=== PATIENT | female | born 1950 | race Caucasian/White ===

== ENCOUNTER → 2017-03-21 | Outpatient (CLI) | payer MEDICARE ==
--- NOTE | 2017-03-22 12:57 | MM ---
Reason for exam: screening (asymptomatic). Last mammogram was performed 1 year ago. History: Patient is postmenopausal. Physical Findings: A clinical breast exam by your physician is recommended on an annual basis and results should be correlated with mammographic findings. MG 3D Screening Mammo W/Cad Bilateral CC and MLO view(s) were taken. Prior study comparison: March 09, 2016, bilateral MG 3d screening mammo w/cad. February 21, 2015, bilateral MG screening mammo w CAD. There are scattered fibroglandular densities. No significant changes when compared with prior studies. ASSESSMENT: Negative, BI-RAD 1 RECOMMENDATION: Routine screening mammogram of both breasts in 1 year.
== END | disposition home or self-care (01) ==
LOC: RADMAMWWP 16:27
PROVIDERS: ATTEND Family Medicine
DX: Z12.31 Encounter for screening mammogram for malignant neoplasm of breast (principal)
CPT/HCPCS: 77063; G0202

== ENCOUNTER 2017-12-06 07:28 | Day surgery (SDC) | payer MEDICARE ==
[2017-12-03 15:59] VITALS: BMI 35.3
[2017-12-06 08:15] VITALS: TEMP 97.6
[2017-12-06 08:45] LABS: INR 1.3 (<1.2)
[2017-12-06] MEDS ORDERED: fentaNYL (PF) 50 MCG/ML 2 ML AMP ONE (08:48)
[2017-12-06] MEDS ORDERED: MIDAZOLAM 2 MG/2 ML VIAL ONE (08:48)
[2017-12-06] MEDS: BENZOCAINE SPRAY 1 CAN MUCOUS MEM ONE ×2 (08:56→09:01)
[2017-12-06] MEDS ORDERED: SODIUM CHLORIDE 0.9% 500 ML IV ONE (08:59)
[2017-12-06] MEDS ORDERED: fentaNYL (PF) 50 MCG/ML 2 ML AMP IVP ONE (09:06)
[2017-12-06] MEDS: MIDAZOLAM 2 MG/2 ML VIAL IVP ONE ×2 (09:06→09:08)
[2017-12-06] MEDS ORDERED: SODIUM CHLORIDE 0.9% 1,000 ML IV SCH (09:30)
--- NOTE | 2017-12-06 09:59 | ECHOT ---
TRANSESOPHAGEAL ECHOCARDIOGRAM INDICATION: CVA. PROCEDURE NOTE: After obtaining informed consent, transesophageal echocardiogram was performed in left lateral position using an Omni plane probe. Local and IV sedation were obtained using Xylocaine spray, 2 mg of Versed and 25 mcg of fentanyl. The patient tolerated the procedure well without any obvious immediate complications. Patient received moderate conscious sedation. Total sedation time was 15 minutes, FINDINGS: 1. There is no intracardiac thrombus within the left atrial appendage, left atrium, right atrium, right ventricle or left ventricle. 2. There is no evidence of left to right shunt by color-flow Doppler or [id number] shunt by agitated saline contrast study across the interatrial septum. 3. Left ventricle has normal size and systolic function. 4. Left atrium, right atrium, right ventricle exam within normal limits. 5. Mitral valve shows mild to moderate mitral regurgitation. 6. Aortic valve with 3-leaflet valve. There is no evidence for aortic stenosis or regurgitation. 7. There is mild pulmonic regurgitation noted. 8. There is mild tricuspid regurgitation noted. Aorta is free of aneurysm or dissection. There are mild atherosclerotic changes noted. CONCLUSION: This transesophageal echo does not show cardiac source for thromboembolic cerebrovascular accident. Left ventricular function is normal. There is no intracardiac thrombus. There is no evidence of shunting across the interatrial septum. MMODL / IJN: [id number] /
[2017-12-06 10:39] VITALS: BP 121/58; PULSE 57; RESP 20
== END 2017-12-06 10:35 | disposition home or self-care (01) ==
LOC: CATHCVL 07:28
PROVIDERS: ATTEND Internal Medicine Cardiovascular Disease
DX: I69.351 Hemiplegia and hemiparesis following cerebral infarction affecting right dominant side (principal); I69.328 Other speech and language deficits following cerebral infarction; I69.319 Unspecified symptoms and signs involving cognitive functions following cerebral infarction; I08.1 Rheumatic disorders of both mitral and tricuspid valves; I12.9 Hypertensive chronic kidney disease with stage 1 through stage 4 chronic kidney disease, or unspecified chronic kidney disease; N18.1 Chronic kidney disease, stage 1; E78.5 Hyperlipidemia, unspecified; D75.82 Heparin induced thrombocytopenia (HIT); I73.9 Peripheral vascular disease, unspecified; Z86.711 Personal history of pulmonary embolism; Z79.01 Long term (current) use of anticoagulants; Z79.02 Long term (current) use of antithrombotics/antiplatelets; Z79.890 Hormone replacement therapy; Z79.899 Other long term (current) drug therapy; Z82.49 Family history of ischemic heart disease and other diseases of the circulatory system
CPT/HCPCS: 93312; 93320; 93325; 85610; J2250; J3010

== ENCOUNTER → 2017-12-31 | Day surgery (SDC) | payer MEDICARE ==
[2017-12-24 15:25] VITALS: BMI 35.2
[~2017-12-31] MED LIST: LIDOCAINE 2% INJ 20 MG/ML SQ ONE; MIDAZOLAM 2 MG/2 ML VIAL IV ONE; MIDAZOLAM 2 MG/2 ML VIAL ONE; SODIUM CHLORIDE 0.9% 1,000 ML IV SCH; ceFAZolin IN SWFI 2 GM/20 ML SYRINGE IVP ONE
[2017-12-31 11:32] VITALS: BP 159/76; RESP 18; TEMP 98
--- NOTE | 2017-12-31 12:01 | P.PCN ---
Preoperative Diagnosis: Loop monitor implant Primary physicians: Bill Fox Content Analyst: Indication: Cryptogenic stroke Patient was brought to the EP lab in a fasting state. Written informed consent was obtained prior to the procedure. The left pectoral area was prepped and draped per protocol. Intravenous antibiotic was administered preoperatively. A subcutaneous Loop monitor was implanted successfully and the wound was closed per protocol. The device was programmed to detect significant bere- arrhythmic and tachy-arrhythmic events, per protocol. Device and programming details: Standard programming for detection of atrial fibrillation and bradycardia Patient underwent EP procedure under conscious sedation/moderate sedation, monitoring of the level of consciousness and physiologic parameters including but not limited to vital signs and oxygenation. Patient tolerated the procedure well without any acute complications. Start time: 1148 Stop time: 1158
--- NOTE | 2017-12-31 12:02 | P.PCN ---
Preoperative Diagnosis: Dear Bill Snyder the pleasure of seeing Ameena in [facility] [place] facility follow-up. Ameena underwent implantation of a loop monitor for evaluation for cryptogenic stroke. Currently she is on Coumadin as well as Plavix and aspirin has been discontinued. Hopefully we can make the diagnosis of atrial fibrillation soon. Thank you for entrusting me with the care of her patient Sincerely Clayton Fournier
[2017-12-31 12:36] LABS: INR 1.1 (<1.2); Prothrombin Time 10.4 sec (9.0-12.0)
== END | disposition home or self-care (01) ==
LOC: CATHEP 10:50
PROVIDERS: ATTEND Internal Medicine Clinical Cardiac Electrophysiology
DX: I69.319 Unspecified symptoms and signs involving cognitive functions following cerebral infarction (principal); I69.351 Hemiplegia and hemiparesis following cerebral infarction affecting right dominant side; I69.328 Other speech and language deficits following cerebral infarction; E78.5 Hyperlipidemia, unspecified; I12.9 Hypertensive chronic kidney disease with stage 1 through stage 4 chronic kidney disease, or unspecified chronic kidney disease; N18.1 Chronic kidney disease, stage 1; D75.82 Heparin induced thrombocytopenia (HIT); I73.9 Peripheral vascular disease, unspecified; Z86.711 Personal history of pulmonary embolism; Z82.49 Family history of ischemic heart disease and other diseases of the circulatory system; Z79.02 Long term (current) use of antithrombotics/antiplatelets; Z79.899 Other long term (current) drug therapy; Z79.01 Long term (current) use of anticoagulants; Z79.890 Hormone replacement therapy
CPT/HCPCS: 33282; 85610; C1764; J2001; J2250; J0690

== ENCOUNTER → 2018-03-25 | Outpatient (CLI) | payer MEDICARE ==
--- NOTE | 2018-03-25 13:24 | MM ---
Reason for exam: screening (asymptomatic). Last mammogram was performed 1 year ago. History: Patient is postmenopausal. Physical Findings: A clinical breast exam by your physician is recommended on an annual basis and results should be correlated with mammographic findings. MG 3D Screening Mammo W/Cad Bilateral CC and MLO view(s) were taken. Prior study comparison: March 21, 2017, bilateral MG 3d screening mammo w/cad. March 09, 2016, bilateral MG 3d screening mammo w/cad. There are scattered fibroglandular densities. There is no discrete abnormality. Negative loop recorder. ASSESSMENT: Benign, BI-RAD 2 RECOMMENDATION: Routine screening mammogram of both breasts in 1 year.
== END | disposition home or self-care (01) ==
LOC: RADMAMWWP 07:34
PROVIDERS: ATTEND Family Medicine
DX: Z12.31 Encounter for screening mammogram for malignant neoplasm of breast (principal)
CPT/HCPCS: 77063; 77067

== ENCOUNTER 2019-04-27 13:00 | Observation (INO) | payer MEDICARE ==
[2019-04-27] MEDS ORDERED: NALOXONE 0.4 MG/ML 1 ML VIAL IV PRN (13:26)
--- NOTE | 2019-04-27 13:32 | ED ---
General Adult HPI - General Chief complaint: Weakness Stated complaint: Weakness Time Seen by Provider: 04/27/19 13:07 Source: patient, family, RN/MD, EMS, RN notes reviewed, old records reviewed (Review chart from [facility] and results.) Mode of arrival: EMS Limitations: language barrier (Patient is very hard of hearing) - History of Present Illness Initial comments: Patient is a pleasant 5 he 8-year-old female presenting to the emergency Department with sister and mother for confusion and generalized weakness. Patient last known well was last night. Patient was transferred from [facility] for evaluation was done. Chart was reviewed. Patient is more confused than normal this morning. Patient does have difficulty getting up and moving around. This is somewhat chronic however worse than normal. Patient does have history of 4 previous strokes. Patient is a very poor historian and is extremely hard of hearing. History comes from family. - Related Data Home Medications Medication Instructions Recorded Confirmed Atorvastatin [Lipitor] 40 mg PO HS 12/03/17 04/27/19 Levothyroxine Sodium [Synthroid] 25 mcg PO Q48H 12/03/17 04/27/19 Aspirin EC [Ecotrin Low Dose] 81 mg PO DAILY 04/27/19 04/27/19 Dabigatran [Pradaxa] 150 mg PO BID 04/27/19 04/27/19 Nitroglycerin Sl Tabs [Nitrostat] 0.4 mg SUBLINGUAL Q5M PRN 04/27/19 04/27/19 levETIRAcetam [Keppra] 500 mg PO BID 04/27/19 04/27/19 predniSONE 5 mg PO DAILY 04/27/19 04/27/19 traMADol HCl [Ultram] 50 mg PO Q6HR PRN 04/27/19 04/27/19 Allergies Allergy/AdvReac Type Severity Reaction Status Date / Time heparin AdvReac low Verified 04/27/19 13:25 platelets Review of Systems ROS Statement: Those systems with pertinent positive or pertinent negative responses have been documented in the HPI. ROS Other: All systems not noted in ROS Statement are negative. Constitutional: Denies: fever Eyes: Denies: eye pain ENT: Denies: ear pain Respiratory: Denies: dyspnea Cardiovascular: Denies: chest pain Endocrine: Denies: fatigue Gastrointestinal: Denies: abdominal pain Genitourinary: Denies: dysuria Musculoskeletal: Reports: other (Patient has discomfort of both of her shoulders per) Skin: Denies: rash Neurological: Reports: as per HPI, weakness, confusion Past Medical History Past Medical History: CVA/TIA, Hyperlipidemia, Hypertension, Thyroid Disorder Additional Past Medical History / Comment(s): 09/2017 TIA; stroke 2013; arrhythmia; see Dr Fournier's H&P History of Any Multi-Drug Resistant Organisms: None Reported Past Surgical History: Orthopedic Surgery Additional Past Surgical History / Comment(s): ORIF R Ankle; Colonoscopy; TL Past Anesthesia/Blood Transfusion Reactions: No Reported Reaction Past Psychological History: No Psychological Hx Reported Smoking Status: Never smoker Past Alcohol Use History: None Reported Past Drug Use History: None Reported - Past Family History Sister(s) Family Medical History: Cancer Father Family Medical History: Cancer General Exam Limitations: language barrier General appearance: alert, in no apparent distress Head exam: Present: atraumatic Eye exam: Present: normal appearance, PERRL ENT exam: Present: normal oropharynx Neck exam: Present: normal inspection. Absent: tenderness Respiratory exam: Present: normal lung sounds bilaterally Cardiovascular Exam: Present: regular rate, normal rhythm Expanded Peripheral pulses: 2+: Radial (R), Radial (L), Dorsalis Pedis (R), Dorsalis Pedis (L) GI/Abdominal exam: Present: soft. Absent: tenderness Extremities exam: Present: normal inspection. Absent: pedal edema, calf tenderness Neurological exam: Present: alert Expanded Neurological exam: Present: protecting the airway Patient oriented to: Present: person, place. Absent: time Speech: Present: fluid speech Motor strength exam: RUE: 5, LUE: 5, RLE: 5, LLE: 5 Eye Response: (4) open spontaneously Motor Response: (6) obeys commands Verbal Response: (4) confused conversation Psychiatric exam: Present: normal affect, normal mood Skin exam: Present: normal color Course Vital Signs 04/27/19 13:07 Temperature 98 F Pulse Rate 108 H Respiratory 18 Rate Blood Pressure 123/102 O2 Sat by Pulse 98 Oximetry Medical Decision Making - Medical Decision Making Per Dr. Mcguire at the [facility] Dr. fulton covering for Dr. Dorothy guthrie equested transfer. Dr. fulton has been paged for admission. Disposition Clinical Impression: Confusion, Generalized weakness Disposition: ADMITTED IP TO THIS HOSP Is patient prescribed a controlled substance at d/c from ED?: No Referrals: Bill De La Cruz MD [Primary Care Provider] - 1-2 days Decision Time: 13:31
[2019-04-27] MEDS: SODIUM CHLORIDE 0.9% 1,000 ML IV SCH (14:23)
[2019-04-27 15:00] VITALS: BMI 36.6
[2019-04-27] MEDS ORDERED: NITROGLYCERIN SL TABS 0.4 MG TAB SUBLINGUAL PRN (15:58)
[2019-04-27] MEDS ORDERED: ACETAMINOPHEN TAB 325 MG TAB PO PRN (16:39)
[2019-04-27 16:44] LABS: Basophils % (A) 0 %; Eosinophils # (A) 0.1 k/uL (0-0.7); Eosinophils % (A) 1 %; HCT 43.2 % (34.0-46.0); HGB 14.1 gm/dL (11.4-16.0); Lymphocytes # (A) 0.9 k/uL (1.0-4.8); Lymphocytes % (A) 16 %; MCH 30.5 pg (25.0-35.0); MCHC 32.7 g/dL (31.0-37.0); MCV 93.4 fL (80.0-100.0); Mean Platelet Volume 6.2; Monocytes # (A) 0.4 k/uL (0-1.0); Monocytes % (A) 7 %; Neutrophils # (A) 4.3 k/uL (1.3-7.7); Neutrophils % (A) 73 %; Platelet Count 241 k/uL (150-450); RBC 4.63 m/uL (3.80-5.40); RDW 14.6 % (11.5-15.5); WBC 5.8 k/uL (3.8-10.6)
[2019-04-27 16:50] LABS: Albumin 3.9 g/dL (3.5-5.0); Potassium 4.8 mmol/L (3.5-5.1); Total Bilirubin 0.5 mg/dL (0.2-1.3)
--- NOTE | 2019-04-27 19:37 | P.CNNES ---
History of Present Illness Consult date: 04/27/19 Reason for Consult: Confusion Chief complaint: Confusion History of Present Illness: REFERRING PHYSICIAN: Dr. Lamonte Mcmahan HISTORY OF PRESENT ILLNESS: Thank you for allowing me to evaluate Ms. Ameena Funes. Ms. Funes is a 68 year-old woman with PMHx of stroke 4 times in the last 3-4 years, last one in January 2019, hyperlipidemia, hypertension, hypothyroidism, hearing loss since last stroke in January 2019, who presents with acute onset confusion and complaints of leg pain bilaterally and ear pain. Patient's daughter, Saumya, is at bedside with corroborating information. Patient states t hat her mother and grandmother lived together. Patient daughter was out of town this weekend. This morning, she was called by her grandmother said that the patient was complaining of pain and confused. Daughter states that patient never wants to go to the hospital, but this morning she actually wanted to be taken to the hospital. Daughter states that since her last stroke in January 2019, patient had a significant downtrending mental status along with complete hearing loss. Patient had been to multiple hospitals including [facility] in [facility]. Patient has been getting worked up for bilateral hearing loss cannot be explained by MRI findings. Patient is followed by ENT. Previously, patient's symptoms of stroke were giggling and confusion. It appears the patient didn't really have any one-sided deficits. Patient denies any recent sickness, dizziness, fever, double/blurry vision, weakness, numbness or tingling. Patient did complain of a little bit of headaches morning. Patient does not have headaches anymore. Daughter states that patient was on Apixaban before her stroke in January 2019, but the medication was switched to Pradaxa since. patient was also off Apixanban for 1 day for her eye surgery when she had her stroke. With each stroke, patient had an MRI, and the daughter was told that there was MRI finding of acute stroke. PAST MEDICAL HISTORY: Stroke x 4 times, hearing loss, hyperlipidemia, hypertension, hypothyroidism, atrial fibrillation. PAST SURGICAL HISTORY: ORIF right ankle, TL, cataract surgery HOME MEDICATIONS: Synthroid, atorvastatin, tramadol, prednisone 5 daily, nitroglycerin, Pradaxa, Keppra 500 twice a day, aspirin 81 daily ALLERGIES: Heparin SOCIAL HISTORY: No smoking history. No alcohol/drug abuse history. FAMILY HISTORY: Father and sister with cancer REVIEW OF SYSTEMS: The 14 systems are reviewed and no additional points are identified compared to the review of systems documented history and physical PHYSICAL EXAMINATION: VITAL SIGNS: Temperature 90.1 pulse rate 98 respiratory rate 18 blood pressure 138/60 302 saturation 95% on room air GEN.: NAD, pleasant and cooperative, bilateral complete hearing loss HEENT: NCAT, sclera without icterus NECK: Supple, no carotid bruit SKIN AND EXTREMITIES: Warm to touch, no edema NEURO: MENTAL STATUS: Patient alert and oriented to self and place. Couldn't remember year. Able to name the current president. Speech mostly fluent although repeats phrases at times, with mild word-finding difficulty, able to name and, following all commands readily. No right and left disorientation or neglect. CRANIAL NERVES II THROUGH XII: II: Pupils are equal and reactive to light symmetrically. No afferent pupillary defect. Visual ochoa are intact. III, IV, : No ptosis. Extraocular movements full. No nystagmus. V: Facial sensation intact from V1-3. VII. No clear facial asymmetry. VIII: complete hearing loss bilaterally. IX, X: Symmetric palate elevation. XII: Shoulder shrug intact. XII: Tongue midline without fasciculation or atrophy. MOTOR: Normal bulk/tone. No pronator drift or tremor. Strength is 5/5 throughout all 4 extremities. SENSORY: Intact to light touch, temperature, pinprick in all 4 extremities. Romberg is negative. REFLEXES: 2+ throughout. Toes are downgoing. No clonus. Yary's is absent COORDINATION: Finger to nose intact. No dysmetria. GAIT: Normal-based gait DIAGNOSTIC TESTING: LABORATORY: WBC 5.8 hemoglobin 14.1 platelets 241 sodium 143 potassium 4.8 chloride 107 bicarb 28 BUN 16 creatinine 1.1 glucose 104 AST 19 ALT 16 alk phos 59 IMAGING: None available at this time ASSESSMENT: Ms. Funes is a 68 year-old woman with PMHx of stroke 4 times in the last 3-4 years, last one in January 2019, hyperlipidemia, hypertension, hypothyroidism, hearing loss since last stroke in January 2019, who presents with acute onset confusion and complaints of leg pain bilaterally and ear pain. Unclear etiology of patient's short duration of confusion. Patient at this time with no focal deficits. However patient with multiple risks for stroke. Patient had multiple MRI brain in the past, but daughter is unsure if patient had it with contrast as well since her acute bilateral hearing loss could potentially be due to other etiology etiology of the stroke. Also, SUSAC syndrome is on the differential at this time as patient presenting with the triad: encephalopathy, eye condition (unclear specific diagnosis but patient recently had eye surgery) and hearing loss, for which MRI will help to get closer to its diagnosis. RECOMMENDATIONS: 1. Daughter will bring MRI record from outside hospital. We'll consider MRI brain with and without contrast pending side hospital record. 2. Altered mental status lab workup: Vitamin B12, folate, ammonia, urinalysis, vitamin E, TSH 3. Neurology will continue to follow Past Medical History Past Medical History: CVA/TIA, Hyperlipidemia, Hypertension, Thyroid Disorder Additional Past Medical History / Comment(s): 09/2017 TIA; stroke 2013; arrhythmia; see Dr Fournier's H&P History of Any Multi-Drug Resistant Organisms: None Reported Past Surgical History: Orthopedic Surgery Additional Past Surgical History / Comment(s): ORIF R Ankle; Colonoscopy; TL Past Anesthesia/Blood Transfusion Reactions: No Reported Reaction Past Psychological History: No Psychological Hx Reported Smoking Status: Never smoker Past Alcohol Use History: None Reported Past Drug Use History: None Reported - Past Family History Sister(s) Family Medical History: Cancer Father Family Medical History: Cancer Medications and Allergies Home Medications Medication Instructions Recorded Confirmed Type Atorvastatin [Lipitor] 40 mg PO HS 12/03/17 04/27/19 History Levothyroxine Sodium [Synthroid] 25 mcg PO Q48H 12/03/17 04/27/19 History Aspirin EC [Ecotrin Low Dose] 81 mg PO DAILY 04/27/19 04/27/19 History Dabigatran [Pradaxa] 150 mg PO BID 04/27/19 04/27/19 History Nitroglycerin Sl Tabs [Nitrostat] 0.4 mg SUBLINGUAL Q5M PRN 04/27/19 04/27/19 History levETIRAcetam [Keppra] 500 mg PO BID 04/27/19 04/27/19 History predniSONE 5 mg PO DAILY 04/27/19 04/27/19 History traMADol HCl [Ultram] 50 mg PO Q6HR PRN 04/27/19 04/27/19 History Allergies Allergy/AdvReac Type Severity Reaction Status Date / Time heparin AdvReac low Verified 04/27/19 13:25 platelets Physical Examination - Vital Signs Vital Signs: Vital Signs Temp Pulse Pulse Resp BP BP Pulse Ox 04/27/19 15:02 98.1 F 98 18 138/63 95 04/27/19 14:15 87 18 108/71 98 04/27/19 13:07 98 F 108 H 18 123/102 98 Intake and Output 04/27/19 04/27/19 04/27/19 06:59 14:59 22:59 Other: Weight 99.8 kg Results - Laboratory Findings CBC and BMP: 04/27/19 16:17 04/27/19 16:17
[2019-04-27] MEDS ORDERED: ALPRAZolam 0.25 MG TAB PO PRN (19:53)
[2019-04-27] MEDS: levETIRAcetam 500 MG TAB PO SCH (20:53)
[2019-04-27] MEDS: DABIGATRAN 150 MG CAP PO SCH (20:53)
[2019-04-27] MEDS ORDERED: ATORVASTATIN 40 MG TAB PO SCH (21:00)
[2019-04-27 22:25] VITALS: RESP 16
--- NOTE | 2019-04-27 22:43 | HP ---
HISTORY AND PHYSICAL DATE OF SERVICE: 04/27/2019 CHIEF COMPLAINT: Weakness. HISTORY OF PRESENT ILLNESS: This 68-year-old woman with a past medical history of multiple medical problems including CVA, TIA, hypertension, hyperlipidemia, hypothyroidism, was initially admitted to [facility] with complaints of weakness. The family noted the patient had generalized weakness and also on the right side. The patient also had some feeling walking wobbly and because of lack of neurologist in [facility] the patient was referred to [facility] and admitted for further evaluation and treatment. Neurology consultation in progress at this time. Unable to obtain history from the patient because the patient is extremely hard of hearing. Most of the history taken from my discussion with staff and review of chart. PAST MEDICAL HISTORY: CVA, TIA, hypertension, hyperlipidemia, hypothyroidism, history of DJD. MEDICATIONS: Prior to admission include home medications are: 1. Ultram 50 mg q.6h p.r.n. 2. Prednisone 5 mg p.o. daily. 3. Nitrostat 0.4 mg p.r.n. 4. Synthroid 25 mg p.o. Q 40. 5. Pradaxa 150 mg p.o. b.i.d. 6. Keppra 500 mg p.o. b.i.d. 7. Lipitor 40 mg q.h.s. 8. Ecotrin 81 mg p.o. daily. ALLERGIES: HEPARIN. FAMILY HISTORY: History of cancer per chart. SOCIAL HISTORY: No history of smoking. Occasional alcohol. REVIEW OF SYSTEMS: ENT: Diminished vision. Diminished hearing. CARDIOVASCULAR: No angina or palpitations. RESPIRATIONS: No cough or hemoptysis. GI no nausea or vomiting. no dysuria. NERVOUS SYSTEM: As mentioned earlier. ALLERGIES/IMMUNOLOGY: No asthma or hayfever. MUSCULOSKELETAL as mentioned earlier. HEMATOLOGY/ONCOLOGY: No history of anemia. ENDOCRINE: Hypothyroidism. CONSTITUTIONAL: As mentioned earlier. DERMATOLOGY negative. RHEUMATOLOGY: Negative. PSYCHIATRIC: Negative. PHYSICAL EXAM: Patient is alert, oriented x3. Pulse 98. Pressure 130/60, respiration 18, temperature 98.1, pulse ox 94% on room air. HEENT: Conjunctivae normal. Oral mucosa moist. NECK is no jugular venous distention. No carotid bruit. No lymph node enlargement. CARDIOVASCULAR SYSTEMS: S1, S2 muffled. RESPIRATORY: Breath sounds diminished in the bases. No rhonchi. No crackles. ABDOMEN: Soft, nontender. No mass palpable. LEGS: No edema. No swelling. NERVOUS SYSTEM: Higher functions as mentioned. Moves all 4 limbs. No focal motor or sensory deficits. LYMPHATICS: No lymph nodes palpable in the neck, axillae or groin. SKIN: No ulcers. No rash. No bleeding. JOINTS: No active deforming arthropathy. LABS: At this time shows labs are at this time shows CBC within normal limits and creatinine 1.10, glucose 104. ASSESSMENT: 1. Weakness for evaluation possible acute transient ischemic attack. 2. Increased creatinine possibly mild acute renal failure. 3. Cerebrovascular accident, transient ischemic attack history. 4. Hypertension. 5. Hyperlipidemia. 6. Hypothyroidism. 7. History of stroke 2013. 8. History of degenerative joint disease. RECOMMENDATIONS AND DISCUSSION: In this 68-year-old woman who presented with multiple medical issues, at this time, I recommend to continue current medications, management and symptomatic treatment. Antiplatelet agents. Resume the home medications, Lipitor, DVT prophylaxis. Repeat labs. IV hydration. Prognosis guarded because of multiple complex medical issues. further recommendations to follow. MMODL / IJN: [id number] / [email or web address]
[2019-04-28 04:02] VITALS: TEMP 97.7
[2019-04-28 06:00] LABS: Basophils % (A) 1 %; Eosinophils # (A) 0.2 k/uL (0-0.7); Eosinophils % (A) 4 %; HCT 42.3 % (34.0-46.0); HGB 13.6 gm/dL (11.4-16.0); Lymphocytes # (A) 0.8 k/uL (1.0-4.8); Lymphocytes % (A) 19 %; MCH 30.2 pg (25.0-35.0); MCHC 32.1 g/dL (31.0-37.0); MCV 93.9 fL (80.0-100.0); Mean Platelet Volume 6.7; Monocytes # (A) 0.4 k/uL (0-1.0); Monocytes % (A) 9 %; Neutrophils # (A) 2.8 k/uL (1.3-7.7); Neutrophils % (A) 64 %; Platelet Count 220 k/uL (150-450); RDW 14.8 % (11.5-15.5); WBC 4.4 k/uL (3.8-10.6)
[2019-04-28] MEDS ORDERED: LEVOTHYROXINE 25 MCG TAB PO SCH (06:30)
[2019-04-28 06:52] LABS: Calcium 9.4 mg/dL (8.4-10.2); Potassium 4.9 mmol/L (3.5-5.1)
[2019-04-28] MEDS ORDERED: PANTOPRAZOLE 40 MG TABLET PO SCH (07:30)
[2019-04-28] MEDS ORDERED: predniSONE 5 MG TAB PO SCH (09:00)
[2019-04-28] MEDS ORDERED: ASPIRIN 81 MG PO SCH (09:00)
[2019-04-28] MEDS: SODIUM CHLORIDE 0.9% 1,000 ML IV SCH (09:24)
[2019-04-28] MEDS: DABIGATRAN 150 MG CAP PO SCH (09:24)
[2019-04-28] MEDS: levETIRAcetam 500 MG TAB PO SCH (09:24)
[2019-04-28 11:08] LABS: Folate, Serum 16.9 ng/mL
--- NOTE | 2019-04-28 12:49 | P.DS ---
Providers Date of admission: 04/27/19 13:26 Attending physician: Andres Monet MD Consults: 04/27/19 13:27 Consult Physician Urgent Consulting Provider: Ava Bardales Consult Reason/Comments: Confusion and weakness Do you want consulting provider notified?: Yes Primary care physician: [facility] Course: 68-year-old female came in with a subacute loss of hearing patient hearing is okay on and off does not appear to have significant and confusion patient is confusion it is at her baseline her main issues hearing problems. Patient was evaluated by neurology although workup is negative patient had multiple MRIs in the past. Patient is at her baseline regarding her hearing which she cannot hear anything, etiology of her hearing problems is not clear although there is a syndrome known as Susac which was considered as possible etiology although the possibility of this is pretty remote and patient will need further workup as an outpatient in neurology and ENT clinic starting with cardiology. Patient does have appointments with the ENT and neurology nothing much can be offered as an inpatient here patient will be discharged today. Patient does not appear to have an any TIA or stroke. PHYSICAL EXAMINATION: GENERAL: The patient is alert and oriented x2-3, not in any acute distress. Well developed, well nourished. Patient has significant hearing problems which has been going on for couple months HEENT: Pupils are round and equally reacting to light. EOMI. No scleral icterus. No conjunctival pallor. Normocephalic, atraumatic. No pharyngeal erythema. No thyromegaly. CARDIOVASCULAR: S1 and S2 present. No murmurs, rubs, or gallops. PULMONARY: Chest is clear to auscultation, no wheezing or crackles. ABDOMEN: Soft, nontender, nondistended, normoactive bowel sounds. No palpable organomegaly. MUSCULOSKELETAL: No joint swelling or deformity. EXTREMITIES: No cyanosis, clubbing, or pedal edema. NEUROLOGICAL: Gross neurological examination did not reveal any focal deficits. SKIN: No rashes. -Subacute hearing loss etiology is not clear Further medical problems hospice physician course please refer to dictation from Dr. Chiu from yesterday Plan - Discharge Summary New Discharge Prescriptions: No Action Levothyroxine Sodium [Synthroid] 25 mcg PO Q48H Atorvastatin [Lipitor] 40 mg PO HS traMADol HCl [Ultram] 50 mg PO Q6HR PRN PRN Reason: Pain predniSONE 5 mg PO DAILY Nitroglycerin Sl Tabs [Nitrostat] 0.4 mg SUBLINGUAL Q5M PRN PRN Reason: Chest Pain Dabigatran [Pradaxa] 150 mg PO BID levETIRAcetam [Keppra] 500 mg PO BID Aspirin EC [Ecotrin Low Dose] 81 mg PO DAILY Discharge Medication List Atorvastatin [Lipitor] 40 mg PO HS 12/03/17 [History] Levothyroxine Sodium [Synthroid] 25 mcg PO Q48H 12/03/17 [History] Aspirin EC [Ecotrin Low Dose] 81 mg PO DAILY 04/27/19 [History] Dabigatran [Pradaxa] 150 mg PO BID 04/27/19 [History] Nitroglycerin Sl Tabs [Nitrostat] 0.4 mg SUBLINGUAL Q5M PRN 04/27/19 [History] levETIRAcetam [Keppra] 500 mg PO BID 04/27/19 [History] predniSONE 5 mg PO DAILY 04/27/19 [History] traMADol HCl [Ultram] 50 mg PO Q6HR PRN 04/27/19 [History] Follow up Appointment(s)/Referral(s): Bill De La Cruz MD [Primary Care Provider] - 3 Days Discharge Disposition: HOME SELF-CARE
--- NOTE | 2019-04-28 13:20 | P.PN ---
Progress Note - Text Progress Note Date: 04/28/19 SUBJECTIVE/INTERVAL EVENTS: No acute overnight events. Spoke to the daughter over the phone as daughter was not at bedside this time. Daughter was not able to find her previous MRI record. Patient will be having follow-up appointments with a neurologist. Informed the daughter that patient can get MRI brain as outpatient per her neurologist recommendation. PHYSICAL EXAMINATION: VITAL SIGNS: Temperature 97.7 pulse rate 67 respiratory rate 67 blood pressure 128/81 O2 saturation 97% on room air GEN.: NAD, pleasant and cooperative, bilateral complete hearing loss HEENT: NCAT, sclera without icterus NECK: Supple, no carotid bruit SKIN AND EXTREMITIES: Warm to touch, no edema NEURO: MENTAL STATUS: Patient alert and oriented to self and place. Couldn't remember year. Able to name the current president. Speech mostly fluent although repeats phrases at times, with mild word-finding difficulty, able to name and, following all commands readily. No right and left disorientation or neglect. CRANIAL NERVES II THROUGH XII: II: Pupils are equal and reactive to light symmetrically. No afferent pupillary defect. Visual ochoa are intact. III, IV, : No ptosis. Extraocular movements full. No nystagmus. V: Facial sensat ion intact from V1-3. VII. No clear facial asymmetry. VIII: complete hearing loss bilaterally. IX, X: Symmetric palate elevation. XII: Shoulder shrug intact. XII: Tongue midline without fasciculation or atrophy. MOTOR: Normal bulk/tone. No pronator drift or tremor. Strength is 5/5 throughout all 4 extremities. SENSORY: Intact to light touch, temperature, pinprick in all 4 extremities. Romberg is negative. REFLEXES: 2+ throughout. Toes are downgoing. No clonus. Yary's is absent COORDINATION: Finger to nose intact. No dysmetria. GAIT: Normal-based gait DIAGNOSTIC TESTING: LABORATORY: WBC 13.6 events 20 sodium 142 potassium 4.9 chloride 109 bicarb 27 BUN 13 creatinine 1.01 glucose 102 ammonia <9 vitamin B12 842 TSH 1.73 folate 16.9 RPR negative IMAGING: None available at this time ASSESSMENT: Ms. Funes is a 68 year-old woman with PMHx of stroke 4 times in the last 3-4 years, last one in January 2019, hyperlipidemia, hypertension, hypothyroidism, hearing loss since last stroke in January 2019, who presents with acute onset confusion and complaints of leg pain bilaterally and ear pain. Unclear etiology of patient's short duration of confusion. Patient at this time with no focal deficits. However patient with multiple risks for stroke. Patient had multiple MRI brain in the past, but daughter is unsure if patient had it with contrast as well since her acute bilateral hearing loss could potentially be due to other etiology etiology of the stroke. Also, SUSAC syndrome is on the differential at this time as patient presenting with the triad: encephalopathy, eye condition (unclear specific diagnosis but patient recently had eye surgery) and hearing loss, for which MRI will help to get closer to its diagnosis, the patient's symptoms of encephalopathy and cognition very minimal. Patient at this time is stable for discharge with MRI brain to be done as outpatient. Neurology will sign off.
[2019-04-28 17:34] VITALS: BP 118/74; PULSE 64
== END 2019-04-28 18:21 | disposition home or self-care (01) ==
LOC: EC 13:00 → 3SCARD 13:26
PROVIDERS: ADMIT Internal Medicine; ATTEND Internal Medicine
DX: H91.93 Unspecified hearing loss, bilateral (principal); R53.1 Weakness; R41.0 Disorientation, unspecified; M79.605 Pain in left leg; M79.604 Pain in right leg; H92.09 Otalgia, unspecified ear; Z86.73 Personal history of transient ischemic attack (TIA), and cerebral infarction without residual deficits; E78.5 Hyperlipidemia, unspecified; I10 Essential (primary) hypertension; E03.9 Hypothyroidism, unspecified; G93.40 Encephalopathy, unspecified; R79.89 Other specified abnormal findings of blood chemistry; I48.91 Unspecified atrial fibrillation; M19.90 Unspecified osteoarthritis, unspecified site; Z79.891 Long term (current) use of opiate analgesic; Z79.899 Other long term (current) drug therapy; Z79.890 Hormone replacement therapy; Z79.82 Long term (current) use of aspirin; Z79.52 Long term (current) use of systemic steroids; Z79.02 Long term (current) use of antithrombotics/antiplatelets; Z88.8 Allergy status to other drugs, medicaments and biological substances; Z80.9 Family history of malignant neoplasm, unspecified
CPT/HCPCS: 99285; 94760; 80053; 80048; 84443; 82607; 84446; 82140; 82746; 85025 ×2; 86780; G0378 ×2; J7512

== ENCOUNTER → 2019-05-22 | Outpatient (CLI) | payer MEDICARE ==
--- NOTE | 2019-05-23 14:06 | CT ---
EXAMINATION TYPE: CT cervical spine wo con DATE OF EXAM: 05/22/2019 COMPARISON: None HISTORY: Neck pain and bilateral shoulder pain. CT DLP: 350.5 mGycm CONTRAST: None CT of the cervical spine is performed in the axial plane at 2 mm thick sections. Reconstructed image s in the coronal, and sagittal plane are reviewed on the computer. No acute fractures are evident. Vertebral body alignment is normal. There is loss of disc height throughout the cervical spine. This appears greatest at C6-7 and posteri fawad C5-6. Minimal grade 1 retrolisthesis of C4 on C5 is not excluded. Right paracentral endplate sofie nges are present which have anterior thecal sac compression at C4-5 level. Severe right uncovertebral joint hypertrophy is present with severe foraminal narrowing. Right severe foraminal stenosis is pre sent C5-C6 due to uncovertebral joint hypertrophy Vertebral body heights are preserved. IMPRESSIONS: 1. Degenerative disc changes. 2. Severe right foraminal stenosis C5-C6 due to uncovertebral joint hypertrophy.
== END | disposition home or self-care (01) ==
LOC: RADCTMAIN 17:03
PROVIDERS: ATTEND Family Medicine
DX: M48.02 Spinal stenosis, cervical region (principal); M47.812 Spondylosis without myelopathy or radiculopathy, cervical region
CPT/HCPCS: 72125

== ENCOUNTER → 2019-08-03 | Outpatient (CLI) | payer MEDICARE ==
--- NOTE | 2019-08-05 08:03 | MM ---
Reason for exam: screening (asymptomatic). Last mammogram was performed 1 year and 4 months ago. History: Patient is postmenopausal. Physical Findings: A clinical breast exam by your physician is recommended on an annual basis and results should be correlated with mammographic findings. MG 3D Screening Mammo W/Cad Bilateral CC and MLO view(s) were taken. Prior study comparison: March 25, 2018, bilateral MG 3d screening mammo w/cad. March 21, 2017, bilateral MG 3d screening mammo w/cad. The breast tissue is heterogeneously dense. This may lower the sensitivity of mammography. There is no discrete abnormality. No significant changes when compared with prior studies. ASSESSMENT: Negative, BI-RAD 1 RECOMMENDATION: Routine screening mammogram of both breasts in 1 year.
== END | disposition home or self-care (01) ==
LOC: RADMAMWWP 15:22
PROVIDERS: ATTEND Family Medicine
DX: Z12.31 Encounter for screening mammogram for malignant neoplasm of breast (principal)
CPT/HCPCS: 77063; 77067

== ENCOUNTER → 2019-09-02 | Outpatient (CLI) | payer MEDICARE | END | disposition home or self-care (01) | LOC: RADMRIMAIN 17:50 | PROVIDERS: ATTEND Nurse Practitioner Adult Health | DX: Z53.9 Procedure and treatment not carried out, unspecified reason (principal) ==

== ENCOUNTER → 2021-12-16 | Outpatient (CLI) | payer MEDICARE ==
--- NOTE | 2021-12-17 07:36 | MR ---
EXAMINATION TYPE: MR brain and iac wo/w con DATE OF EXAM: 12/16/2021 COMPARISON: Prior MRI brain and IAC September 18, 2019. 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 FINDINGS: Diffusion weighted images demonstrate no evidence of a recent infarct or other diffusion ab normality. There is diffuse ventricular and sulcal prominence redemonstrated. There are old infarcts involving bilateral parietal lobes redemonstrated right slightly larger than left. There is additiona l full infarct right frontal parietal region in the MCA distribution redemonstrated. Some additional scattered foci of T2 hyperintensity are redemonstrated. Old infarcts throughout the cerebellar hemisp heres including larger infarct posterior left cerebellum axial image 6 all redemonstrated. Midline structures redemonstrate fairly normal morphology. There is probable area of low T1 and incre ased T2 signal and nonenhancement from the sella turcica sagittal image 72 with suprasellar extension coronal image 17 redemonstrated. The craniocervical junction remains within normal limits. Post contrast images demonstrate no abnorm al enhancement. The dural venous sinuses appear patent. The visualized sinuses are clear and the glob es are intact. Nasal septum remains deviated to left of midline. Some patchy increased fluid signal left mastoid air cells redemonstrated. Vestibulocochlear complexes are symmetric and within normal limits. Just anterior and superior to the left vestibulocochlear com plex there is a 9 x 8 x 5 mm hyperintense lesion on postcontrast axial image 9 and coronal image 7 in retrospect was present on prior study suspicious for enhancing extra-axial mass possible meningioma versus asymmetric bony prominence, correlate clinically and with CT examination advised. IMPRESSION: Significant Bilateral infarcts greater on the right side redemonstrated including multipl e cerebellar infarcts. Nonspecific mild fluid signal left mastoid air cells favors retained secretion s. Possible posterior sellar lesion with local mass effect is stable. 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 Advise clinical correlation and correlation with old outside CT and/or MRI imag ing. No significant change from most recent MRI.
== END | disposition home or self-care (01) ==
LOC: RADMRIMAIN 13:42
PROVIDERS: ATTEND Family Medicine
DX: D49.6 Neoplasm of unspecified behavior of brain (principal)
CPT/HCPCS: 70553; A9585